=== PATIENT | female | born 1980 | race American Indian/Alaskan Native ===

== ENCOUNTER 2017-06-19 23:53 | Emergency (ER) | payer BC ==
[2017-06-20 00:23] VITALS: BP 155/81
[2017-06-20 00:57] LABS: CHLORIDE,CL 105 mmol/L (101-111); SODIUM,NA 139 mmol/L (135-145)
--- NOTE | 2017-06-20 01:14 | EDM.PDOC ---
ED HPI GENERAL MEDICAL PROBLEM - General Chief Complaint: Syncope Stated Complaint: SHAKY AND BODY IS TINGLING Time Seen by Provider: 06/20/17 00:05 Source of Information: Reports: Patient History Limitations: Reports: No Limitations - History of Present Illness INITIAL COMMENTS - FREE TEXT/NARRATIVE: c/o feeling lightheaded and shaky while getting ready for bed almost passed out attempted to sleep and felt worse. Admits lack of sleep today as upmost of night , traveled to [place] for ill father then to [place] today, Just back this capo. Ate last at 1330. Onset: Today, Sudden Duration: Improving Severity: Mild - Related Data Allergies Allergy/AdvReac Type Severity Reaction Status Date / Time No Known Allergies Allergy Verified 06/20/17 00:12 Home Meds: Home Meds . 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: Psychiatric History: Reports: Anxiety Social & Family History - Family History Family Medical History: Noncontributory - Tobacco Use Smoking Status *Q: Current Every Day Smoker Years of Tobacco use: 20 Packs/Tins Daily: 0.5 - Caffeine Use Caffeine Use: Reports: Coffee - Alcohol Use Days Per Week of Alcohol Use: 1 Number of Drinks Per Day: 6 Total Drinks Per Week: 6 - Recreational Drug Use Recreational Drug Use: Yes Drug Use in Last 12 Months: Yes Recreational Drug Type: Reports: Marijuana/Hashish ED ROS GENERAL - Review of Systems Review Of Systems: See Below Constitutional: Reports: Weakness HEENT: Reports: No Symptoms Respiratory: Reports: No Symptoms Cardiovascular: Reports: Lightheadedness GI/Abdominal: Reports: No Symptoms : Reports: Irregular Menses (heavy) Musculoskeletal: Reports: No Symptoms Skin: Reports: No Symptoms Neurological: Reports: Dizziness, Other (shaking) Psychiatric: Reports: Anxiety (similar episode few years ago ) Hematologic/Lymphatic: Reports: Anemia (in past) ED EXAM, DIZZINESS - Physical Exam Exam: See Below Exam Limited By: No Limitations General Appearance: Alert, Anxious, Mild Distress Eye Exam: Bilateral Eye: EOMI, PERRL Ears: Normal External Exam, Normal TMs Nose: Normal Inspection Throat/Mouth: Normal Oropharynx Head Exam: Atraumatic, Normocephalic Neck: Normal Inspection, Full Range of Motion Respiratory/Chest: No Respiratory Distress, Lungs Clear, Normal Breath Sounds Cardiovascular: Normal Peripheral Pulses, Regular Rate, Rhythm, Other ( orthostatic change when standing) GI/Abdominal: Normal Bowel Sounds, Soft, Non-Tender Neurological: Alert, Normal Mood/Affect, CN II-XII Intact, Normal Gait, Normal Reflexes, Oriented x 3 Back Exam: Normal Inspection Extremities: Normal Inspection Psychiatric: Normal Affect, Normal Mood, Anxious Skin Exam: Warm, Dry, Intact, Pallor EKG INTERPRETATION Rhythm: NSR Course - Vital Signs Last Recorded V/S: Last Vital Signs Temp 97.5 F 06/20/17 00:04 Pulse 88 06/20/17 00:22 Resp 15 06/20/17 00:22 BP 155/81 H 06/20/17 00:22 Pulse Ox 100 06/20/17 00:22 Orthostatic Blood Pressure [ 135/89 Standing] Orthostatic Blood Pressure [ 148/78 Sitting] Orthostatic Blood Pressure [ 160/82 Supine] - Orders/Labs/Meds Orders: Active Orders 24 hr Category Date Time Status EKG 12 Lead [EKG Documentation Completion] [RC] URGENT Care 06/20/17 00:19 Active Orthostatic Vital Signs [RC] ASDIRECTED Care 06/20/17 01:03 Active Labs: Laboratory Tests 06/20/17 06/20/17 06/20/17 Range/Units 00:30 00:30 00:30 WBC 10.6 H (5.0-10.0) 10^3/uL RBC 4.60 (4.2-5.4) 10^6/uL Hgb 8.7 L (12.0-16.0) g/dL Hct 30.3 L (37.0-47.0) % MCV 65.9 L (80-100) fL MCH 18.9 L (27.0-34.0) pg MCHC 28.7 L (33.0-35.0) g/dL Plt Count 343 (150-450) 10^3/uL Neut % (Auto) 64.9 (42.2-75.2) % Lymph % (Auto) 24.4 (20.5-50.1) % Ashley % (Auto) 6.6 (2-8) % Eos % (Auto) 3.3 H (1.0-3.0) % Baso % (Auto) 0.8 (0.0-1.0) % Sodium 139 (135-145) mmol/L Potassium 3.6 (3.6-5.0) mmol/L Chloride 105 (101-111) mmol/L Carbon Dioxide 24.0 (21.0-31.0) mmol/L Anion Gap 13.6 BUN 10 (7-18) mg/dL Creatinine 0.8 (0.6-1.3) mg/dL Est Cr Clr Drug Dosing 94.45 mL/min Estimated GFR (MDRD) > 60 BUN/Creatinine Ratio 12.50 Glucose 109 H (74-105) mg/dL Calcium 9.2 (8.4-10.2) mg/dl Total Bilirubin 0.5 (0.2-1.0) mg/dL AST 27 (10-42) IU/L ALT 19 (10-60) IU/L Alkaline Phosphatase 104 (42-121) IU/L Total Protein 7.5 (6.7-8.2) g/dl Albumin 4.0 (3.2-5.5) g/dl Globulin 3.5 Albumin/Globulin Ratio 1.14 Urine Color Straw (YELLOW) Urine Appearance Clear (CLEAR) Urine pH 7.0 (5.0-9.0) Ur Specific [place] 1.010 (1.005-1.030) Urine Protein Negative (NEGATIVE) Urine Glucose (UA) Negative (NEGATIVE) Urine Ketones Negative (NEGATIVE) Urine Occult Blood Negative (NEGATIVE) Urine Nitrite Negative (NEGATIVE) Urine Bilirubin Negative (NEGATIVE) Urine Urobilinogen 0.2 (0.2-1.0) mg/dL Ur Leukocyte Esterase Negative (NEGATIVE) Urine RBC 0-5 /HPF Urine WBC 0-5 (0-5/HPF) /HPF Ur Epithelial Cells Few /HPF Urine Bacteria Few (0-FEW/HPF) /HPF Departure - Departure Time of Disposition: 01:11 Disposition: Home, Self-Care 01 Condition: Fair Clinical Impression: Menometrorrhagia Anemia Qualifiers: Anemia type: iron deficiency Iron deficiency anemia type: unspecified iron deficiency Qualified Code(s): D50.9 - Iron deficiency anemia, unspecified - Discharge Information Instructions: Near-Syncope, [id number] Forms: ED Department Discharge Additional Instructions: Multivitamin with iron daily change positions slowly, follow up with primary care provider for recheck and to discuss options with heavy periods - My Orders Last 24 Hours: My Active Orders 06/20/17 00:19 EKG 12 Lead [EKG Documentation Completion] [RC] URGENT 06/20/17 01:03 Orthostatic Vital Signs [RC] ASDIRECTED - Assessment/Plan Last 24 Hours: My Active Orders 06/20/17 00:19 EKG 12 Lead [EKG Documentation Completion] [RC] URGENT 06/20/17 01:03 Orthostatic Vital Signs [RC] ASDIRECTED
--- NOTE | 2017-06-21 09:45 | EKG ---
06/20/2017- GUY SHOOK - EKG per my reading shows sinus rhythm at the rate of 78. [facility] /[id number]
== END 2017-06-20 01:25 | disposition home or self-care (01) ==
LOC: DL.ED 23:53
DX: N92.1 Excessive and frequent menstruation with irregular cycle (principal); D50.9 Iron deficiency anemia, unspecified; F17.210 Nicotine dependence, cigarettes, uncomplicated
CPT/HCPCS: 36415; 80053; 81001; 85025; 93005; 99284

== ENCOUNTER 2019-10-25 16:48 | Emergency (ER) | payer BC ==
[2019-10-25] MEDS ORDERED: Ondansetron 4 MG Tab.DIS PO ONE ×2 (16:49→17:14)
[2019-10-25 17:04] VITALS: BP 125/65; PULSE 94
[2019-10-25] MEDS ORDERED: Ondansetron 4 MG Tab.DIS ONE (17:39)
--- NOTE | 2019-10-25 20:47 | EDM.PDOC ---
Scribed by Betty Choudhury 10/25/19 1732 for Mallory Souza NP ED HPI GENERAL MEDICAL PROBLEM - General Chief Complaint: Gastrointestinal Problem Stated Complaint: THROWING UP Time Seen by Provider: 10/25/19 17:20 Source of Information: Reports: Patient, RN, RN Notes Reviewed History Limitations: Reports: No Limitations - History of Present Illness INITIAL COMMENTS - FREE TEXT/NARRATIVE: Patient presents to the ER today with 2 day nausea and vomited this A.M. x1. Her sister presents to the ER with the same symptoms. The family ate the same foods. This was of sudden onset yesterday. She has had chills and mild abdominal discomfort. Onset Date: 10/24/19 Duration: Getting Worse Location: Reports: Abdomen Quality: Reports: Ache Severity: Mild Improves with: Reports: None Worsens with: Reports: None Associated Symptoms: Reports: No Other Symptoms Bilateral Upper Abdomen Pain Score (Numeric/FACES): 5 - Related Data Allergies Allergy/AdvReac Type Severity Reaction Status Date / Time No Known Allergies Allergy Verified 10/25/19 17:04 Home Meds: Home Meds . 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 ED EXAM, GI/ABD - Physical Exam Exam: See Below Exam Limited By: No Limitations General Appearance: Alert, WD/WN, No Apparent Distress Eyes: Bilateral: Normal Appearance Ears: Normal External Exam, Normal Canal, Hearing Grossly Normal, Normal TMs Nose: Normal Inspection, Normal Mucosa, No Blood Throat/Mouth: Normal Inspection, Normal Lips, Normal Teeth, Normal Gums, Normal Oropharynx, Normal Voice, No Airway Compromise Head: Atraumatic, Normocephalic Neck: Normal Inspection, Supple, Non-Tender, Full Range of Motion Respiratory/Chest: No Respiratory Distress, Lungs Clear, Normal Breath Sounds, No Accessory Muscle Use, Chest Non-Tender Cardiovascular: Normal Peripheral Pulses, Regular Rate, Rhythm, No Edema, No Gallop, No JVD, No Murmur, No Rub GI/Abdominal Exam: Other (mild general abdominal pain with palpation. Negative McBurney or McMurphy. ). No: Guarding, Rebound (Female) Exam: Deferred Rectal (Female) Exam: Deferred Back Exam: Normal Inspection, Full Range of Motion, NT Extremities: Normal Inspection, Normal Range of Motion, Non-Tender, Normal Capillary Refill, No Pedal Edema Neurological: Alert, Oriented, CN II-XII Intact, Normal Cognition, Normal Gait, Normal Reflexes, No Motor/Sensory Deficits Psychiatric: Normal Affect, Normal Mood Skin Exam: Warm, Dry, Intact, Normal Color, No Rash Course - Vital Signs Last Recorded V/S: Last Vital Signs Temp 36.1 C 10/25/19 17:01 Pulse 94 10/25/19 17:01 Resp 18 10/25/19 17:01 BP 125/65 10/25/19 17:01 Pulse Ox 96 10/25/19 17:01 - Orders/Labs/Meds Meds: Medications Discontinued Medications Generic Name Dose Route Start Last Admin Trade Name Freq PRN Reason Stop Dose Admin Ondansetron HCl 4 mg 10/25/19 17:14 10/25/19 17:20 Zofran Odt PO 10/25/19 17:15 4 mg ONETIME ONE Administration Departure - Departure Time of Disposition: 17:31 Disposition: Home, Self-Care 01 Condition: Good Clinical Impression: Gastroenteritis - Discharge Information Instructions: Viral Gastroenteritis, Adult Forms: ED Department Discharge Additional Instructions: Zofran as needed for nausea q 6 hours. If unable to keep fluids down and vomiting with diarrhea or if abdominal pain worsens; then return to the ER Sepsis Event Note - Evaluation Sepsis Screening Result: No Definite Risk - Focused Exam Vital Signs: Vital Signs Temp Pulse Resp BP Pulse Ox 10/25/19 17:01 36.1 C 94 18 125/65 96 Date Exam was Performed: 10/25/19 Time Exam was Performed: 17:41 I have read and agree with the documentation that has been completed regarding this visit. By signing this record, I attest that the documentation was completed in my physical presence and is an accurate record of the encounter.
== END 2019-10-25 17:47 | disposition home or self-care (01) ==
LOC: DL.ED 16:48
DX: K52.9 Noninfective gastroenteritis and colitis, unspecified (principal); F17.210 Nicotine dependence, cigarettes, uncomplicated
CPT/HCPCS: 99283; A9270

== ENCOUNTER 2021-05-27 13:38 | Emergency (ER) | payer BC ==
[2021-05-27 14:24] VITALS: BP 117/74; PULSE 79
--- NOTE | 2021-05-27 15:15 | EDM.PDOC ---
ED HPI GENERAL MEDICAL PROBLEM - General Chief Complaint: General Stated Complaint: FACE NUMB / TROUBLE BREATHING Time Seen by Provider: 05/27/21 14:50 Source of Information: Reports: Patient History Limitations: Reports: No Limitations - History of Present Illness INITIAL COMMENTS - FREE TEXT/NARRATIVE: This 40 yo female patient reports to the ED due to numbness and tingling of her hands, neck, ears and face. The patient reports she was driving home when her symptoms started. The patient report she has had anxiety or panic attacks in the past, but has not ever noticed the tingling. The patient reports she is feeling better by the time of the examination. Onset: Today Duration: Resolved Prior to Arrival Location: Reports: Face, Neck, Upper Extremity, Left, Upper Extremity, Right Quality: Reports: Other Severity: Moderate Improves with: Reports: None Worsens with: Reports: None Context: Reports: Other Associated Symptoms: Reports: No Other Symptoms - Related Data Allergies Allergy/AdvReac Type Severity Reaction Status Date / Time No Known Allergies Allergy Verified 10/25/19 17:04 Home Meds: Home Meds . 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 ED EXAM, GENERAL - Physical Exam Exam: See Below Exam Limited By: No Limitations General Appearance: Alert, WD/WN, Mild Distress Eye Exam: Bilateral Eye: EOMI, Normal Inspection, PERRL Ears: Normal External Exam, Normal Canal, Hearing Grossly Normal, Normal TMs Nose: Normal Inspection, Normal Mucosa, No Blood Throat/Mouth: Normal Inspection, Normal Lips, Normal Teeth, Normal Gums, Normal Oropharynx, Normal Voice, No Airway Compromise Head: Atraumatic, Normocephalic Neck: Normal Inspection, Supple, Non-Tender, Full Range of Motion Respiratory/Chest: No Respiratory Distress, Lungs Clear, Normal Breath Sounds, No Accessory Muscle Use, Chest Non-Tender Cardiovascular: Normal Peripheral Pulses, Regular Rate, Rhythm, No Edema, No Gallop, No JVD, No Murmur, No Rub (Female) Exam: Deferred Rectal (Female) Exam: Deferred Back Exam: Normal Inspection, Full Range of Motion Extremities: Normal Inspection, Normal Range of Motion, Non-Tender, Normal Capillary Refill, No Pedal Edema Neurological: Alert, Oriented, CN II-XII Intact, Normal Cognition, Normal Gait, Normal Reflexes, No Motor/Sensory Deficits Psychiatric: Normal Affect, Normal Mood Skin Exam: Warm, Dry, Intact, Normal Color, No Rash Lymphatic: No Adenopathy Course - Vital Signs Last Recorded V/S: Last Vital Signs Temp 98.1 F 05/27/21 14:20 Pulse 79 05/27/21 14:20 Resp 16 05/27/21 14:20 BP 117/74 05/27/21 14:20 Pulse Ox 99 05/27/21 14:20 Departure - Departure Time of Disposition: 15:12 Disposition: Home, Self-Care 01 Condition: Fair Clinical Impression: Anxiety - Discharge Information *PRESCRIPTION DRUG MONITORING PROGRAM REVIEWED*: Not Applicable *COPY OF PRESCRIPTION DRUG MONITORING REPORT IN PATIENT LORENE: Not Applicable Instructions: Managing Anxiety, Adult Forms: ED Department Discharge Care Plan Goals: The patient was advised of the examination results during the visit. The patient was encouraged to practice relaxation techniques when she notices increased stress or anxiety. If the patient has any additional symptoms or concerns, the patient should either return to the emergency department or visit her primary care facility. Sepsis Event Note (ED) - Evaluation Sepsis Screening Result: No Definite Risk - Focused Exam Vital Signs: Vital Signs Temp Pulse Resp BP Pulse Ox 05/27/21 14:20 98.1 F 79 16 117/74 99
== END 2021-05-27 15:28 | disposition home or self-care (01) ==
LOC: DL.ED 13:38
DX: F41.9 Anxiety disorder, unspecified (principal); Z72.0 Tobacco use
CPT/HCPCS: 99282; 99283

== ENCOUNTER 2021-05-30 13:53 | Emergency (ER) | payer BC ==
[2021-05-30 14:16] VITALS: BP 128/80; PULSE 66
== END 2021-05-30 15:34 | disposition left against medical advice (07) ==
LOC: DL.ED 13:53
DX: Z53.21 Procedure and treatment not carried out due to patient leaving prior to being seen by health care provider (principal)

== ENCOUNTER 2024-06-13 18:58 | Emergency (ER) | payer BC ==
[2024-06-13 19:48] VITALS: BP 141/82; PULSE 82
== END 2024-06-13 21:03 | disposition home or self-care (01) ==
LOC: DL.ED 18:58
DX: J01.90 Acute sinusitis, unspecified (principal); F17.210 Nicotine dependence, cigarettes, uncomplicated; Z79.899 Other long term (current) drug therapy
CPT/HCPCS: 99283; 99284; U0002

== ENCOUNTER 2024-10-28 22:47 | Emergency (ER) | payer BC ==
[2024-10-29 00:09] VITALS: BP 136/60; PULSE 78
== END 2024-10-29 00:05 | disposition home or self-care (01) ==
LOC: DL.ED 22:47
DX: R07.89 Other chest pain (principal); E66.9 Obesity, unspecified; F17.210 Nicotine dependence, cigarettes, uncomplicated; Z86.16 Personal history of COVID-19; Z79.899 Other long term (current) drug therapy; Z68.27 Body mass index [BMI] 27.0-27.9, adult
CPT/HCPCS: 71046; 99284

== ENCOUNTER 2025-04-18 21:29 | Emergency (ER) | payer BC, OTHER ==
[2025-04-18 23:00] VITALS: BP 131/71; PULSE 57
[2025-04-18] MEDS ORDERED: Sodium Chloride 0.9% 10 ML Syringe FLUSH PRN (23:17)
[2025-04-18] MEDS: Ondansetron 4 MG/2 ML SDV IVPUSH ONE (23:25)
[2025-04-18] MEDS: Lactated Ringers 1,000 ML IV SCH (23:25)
[2025-04-18 23:32] LABS: BASOPHILS PERCENT AUTO 0.5 % (0.0-1.0); EOSINOPHILS PERCENT AUTO 0.1 % (1.0-3.0); HEMATOCRIT 37.6 % (37.0-47.0); HEMOGLOBIN 11.9 g/dL (12.0-16.0); LYMPHOCYTES PERCENT AUTO 6.1 % (20.5-50.1); MEAN CORPUSCULAR HEMOGLOBIN 25.4 pg (27.0-34.0); MEAN CORPUSCULAR HGB CONC 31.6 g/dL (33.0-35.0); MEAN CORPUSCULAR VOLUME 80.3 fL (80-100); MONOCYTES PERCENT AUTO 5.8 % (2-8); NEUTROPHILS PERCENT AUTO 87.5 % (42.2-75.2); PLATELET COUNT,PLT 364 10^3/uL (150-450); RED BLOOD CELL COUNT 4.68 10^6/uL (4.2-5.4); WHITE BLOOD CELL COUNT,WBC 10.3 10^3/uL (5.0-10.0)
[2025-04-18 23:57] LABS: ALBUMIN 3.1 g/dL (3.4-5.0); BUN/CREATININE RATIO 5.8 (No establ ref range); CALCIUM 10.7 mg/dL (8.5-10.1); CREATININE 1.2 mg/dL (0.55-1.02); EST CRCL DRUG DOSING (CG) 56.97 mL/min; MAGNESIUM 1.3 mg/dL (1.8-2.4); PROTEIN TOTAL,TP 7.6 g/dL (6.4-8.2)
[2025-04-18 23:59] LABS: A/G RATIO 0.69
[2025-04-19] MEDS: Magnesium Sulfate 2 GM/50 mL 2 GM in Premix Bag 1 BAG IV ONE (00:36)
[2025-04-19 00:37] LABS: APPEARANCE,URINE CLOUDY (CLEAR); BILIRUBIN,URINE NEGATIVE (NEGATIVE); COLOR,URINE YELLOW (YELLOW); GLUCOSE,URINE NEGATIVE (NEGATIVE); KETONES,URINE 15 (NEGATIVE); LEUKOCYTE ESTERASE,URINE TRACE (NEGATIVE); NITRITE,URINE POSITIVE (NEGATIVE); OCCULT BLOOD,URINE NEGATIVE (NEGATIVE); PROTEIN,URINE 100 (NEGATIVE)
[2025-04-19 00:41] LABS: AMPHETAMINES,URINE NEGATIVE (NEGATIVE); BARBITURATES,URINE NEGATIVE (NEGATIVE); BENZODIAZEPINE,URINE NEGATIVE (NEGATIVE); MDMA (ECSTASY), URINE NEGATIVE (NEGATIVE); METHADONE,URINE NEGATIVE (NEGATIVE); METHAMPHETAMINES,URINE NEGATIVE (NEGATIVE); OPIATES,URINE NEGATIVE (NEGATIVE); OXYCODONE,URINE NEGATIVE (NEGATIVE); PHENCYCLIDINE,URINE NEGATIVE (NEGATIVE); TCA,URINE NEGATIVE (NEGATIVE)
[2025-04-19 00:47] LABS: EPITHELIAL CELLS,URINE FEW /HPF (NOT SEEN); RBC,URINE 0-5 /HPF (0-5); WBC,URINE 30-40 /HPF (0-5/HPF)
[2025-04-19 00:48] LABS: AMORPHOUS SEDIMENT,URINE FEW /HPF (NOT SEEN); BACTERIA,URINE MANY /HPF (0-FEW/HPF); MUCUS,URINE FEW /LPF (NOT SEEN)
[2025-04-19] MEDS: Take Home: Ciprofloxacin HCl 500 MG, 6 Tab Pack PO ONE (00:49)
[2025-04-19] MEDS: Take Home: Ondansetron 4 MG Tab.DIS, 5 Tab Pack PO ONE (00:49)
== END 2025-04-19 01:32 | disposition home or self-care (01) ==
LOC: DL.ED 21:29
DX: N30.00 Acute cystitis without hematuria (principal); F10.20 Alcohol dependence, uncomplicated; E83.42 Hypomagnesemia; F17.210 Nicotine dependence, cigarettes, uncomplicated; E66.9 Obesity, unspecified; Z68.23 Body mass index [BMI] 23.0-23.9, adult; Z86.16 Personal history of COVID-19
CPT/HCPCS: 36415; 80053; 80305; 80307; 81001; 81025; 83690; 83735; 85025; 87086; 87088; 87186; 96361; 96365; 96375; 99284; A9270; J2405; J3475; J7120; Q0162

== ENCOUNTER 2025-05-26 07:47 | Emergency (ER) | payer SELFPAY ==
[2025-05-26] MEDS ORDERED: Sodium Chloride 0.9% 10 ML Syringe FLUSH PRN (08:05)
[2025-05-26 08:16] LABS: BASOPHILS PERCENT AUTO 0.3 % (0.0-1.0); EOSINOPHILS PERCENT AUTO 1.8 % (1.0-3.0); LYMPHOCYTES PERCENT AUTO 19.7 % (20.5-50.1); MONOCYTES PERCENT AUTO 6.1 % (2-8); NEUTROPHILS PERCENT AUTO 72.1 % (42.2-75.2); PLATELET COUNT,PLT 349 10^3/uL (150-450); RED BLOOD CELL COUNT 4.82 10^6/uL (4.2-5.4); WHITE BLOOD CELL COUNT,WBC 9.9 10^3/uL (5.0-10.0)
[2025-05-26] MEDS: Ondansetron 4 MG/2 ML SDV IVPUSH ONE (08:20)
[2025-05-26] MEDS: fentaNYL 100 MCG/2 ML SDV IVPUSH ONE (08:20)
[2025-05-26] MEDS: Lactated Ringers 1,000 ML IV SCH (08:21)
[2025-05-26 08:32] LABS: HCG QUALITATIVE,SERUM NEGATIVE (NEGATIVE)
[2025-05-26 08:37] LABS: A/G RATIO 0.66; ALANINE AMINOTRANSFERASE,ALT 67 U/L (14-59); ASPARTATE AMNIOTRANSFERASE,AST 121 U/L (15-37); BILIRUBIN TOTAL 0.8 mg/dL (0.2-1.0); BLOOD UREA NITROGEN,BUN 2 mg/dL (7-18); CARBON DIOXIDE,CO2 25 mmol/L (21-32); CHLORIDE,CL 102 mmol/L (98-107); CREATININE 1.18 mg/dL (0.55-1.02); EST CRCL DRUG DOSING (CG) 57.93 mL/min; ESTIMATED GFR 58 mL/min (>=60); GLUCOSE RANDOM 117 mg/dL (70-99); POTASSIUM,K 4.3 mmol/L (3.5-5.1); PROTEIN TOTAL,TP 7.3 g/dL (6.4-8.2); SODIUM,NA 137 mmol/L (136-145)
[2025-05-26] MEDS ORDERED: Iopamidol 612 MG/ML 100 ML Bottle IVPUSH ONE (08:44)
[2025-05-26] MEDS: Magnesium Sulf/Wat 4 GM/50 mL 4 GM in Premix Bag 1 BAG IV ONE (09:06)
[2025-05-26 09:24] LABS: APPEARANCE,URINE SLIGHTLY CLOUDY (CLEAR); GLUCOSE,URINE NEGATIVE (NEGATIVE); OCCULT BLOOD,URINE TRACE-INTACT (NEGATIVE)
[2025-05-26 09:35] LABS: AMPHETAMINES,URINE NEGATIVE (NEGATIVE); BARBITURATES,URINE NEGATIVE (NEGATIVE); MDMA (ECSTASY), URINE NEGATIVE (NEGATIVE); METHAMPHETAMINES,URINE NEGATIVE (NEGATIVE); OPIATES,URINE NEGATIVE (NEGATIVE); OXYCODONE,URINE NEGATIVE (NEGATIVE); PHENCYCLIDINE,URINE NEGATIVE (NEGATIVE); TCA,URINE NEGATIVE (NEGATIVE)
[2025-05-26 09:41] LABS: EPITHELIAL CELLS,URINE FEW /HPF (NOT SEEN)
[2025-05-26 12:58] VITALS: BP 128/110; PULSE 74
== END 2025-05-26 12:46 | disposition home or self-care (01) ==
LOC: DL.ED 07:47
DX: N39.0 Urinary tract infection, site not specified (principal); E83.42 Hypomagnesemia; Z86.16 Personal history of COVID-19
CPT/HCPCS: 36415; 74177; 80053; 80305-QW; 81001; 83690; 83735; 84703; 85025; 86140; 87086; 87088; 87186; 96361; 96365; 96366; 96375; 99284-25; J0696; J2405; J3010; J3475; J7120

== ENCOUNTER 2025-06-02 11:45 | Emergency (ER) | payer SELFPAY ==
[2025-06-02] MEDS ORDERED: Sodium Chloride 0.9% 10 ML Syringe FLUSH PRN (12:04)
[2025-06-02 12:27] LABS: PLATELET COUNT,PLT 414 10^3/uL (150-450); RED BLOOD CELL COUNT 4.50 10^6/uL (4.2-5.4); WHITE BLOOD CELL COUNT,WBC 8.2 10^3/uL (5.0-10.0)
[2025-06-02 12:31] LABS: BASOPHILS PERCENT AUTO 0.9 % (0.0-1.0); EOSINOPHILS PERCENT AUTO 3.0 % (1.0-3.0); LYMPHOCYTES PERCENT AUTO 24.5 % (20.5-50.1); MONOCYTES PERCENT AUTO 9.5 % (2-8); NEUTROPHILS PERCENT AUTO 62.1 % (42.2-75.2)
[2025-06-02 12:46] LABS: INR 0.9 (0.9-1.2); PTT,PARTIAL THROMBOPLSTIN TIME 20.5 SEC (22.0-34.0)
[2025-06-02 12:53] LABS: ALANINE AMINOTRANSFERASE,ALT 62.0 U/L (14-59); ASPARTATE AMNIOTRANSFERASE,AST 121.0 U/L (15-37); BILIRUBIN TOTAL 0.3 mg/dL (0.2-1.0); CARBON DIOXIDE,CO2 23.0 mmol/L (21-32); CHLORIDE,CL 107.0 mmol/L (98-107); CREATININE 0.93 mg/dL (0.55-1.02); EST CRCL DRUG DOSING (CG) 73.5 mL/min; ETHANOL BLOOD MEDICAL 60.0 mg/dL (0); GLUCOSE RANDOM 93.0 mg/dL (70-99); POTASSIUM,K 3.8 mmol/L (3.5-5.1); PROTEIN TOTAL,TP 7.1 g/dL (6.4-8.2); SODIUM,NA 143.0 mmol/L (136-145)
[2025-06-02 12:57] LABS: A/G RATIO 0.65; ESTIMATED GFR 77.0 mL/min (>=60)
[2025-06-02 12:58] LABS: LACTIC ACID 4.7 mmol/L (0.4-2.0)
[2025-06-02 13:02] LABS: BLOOD UREA NITROGEN,BUN 1.0 mg/dL (7-18)
[2025-06-02 13:05] LABS: EOSINOPHILS PERCENT MAN 3 % (1-3); LYMPHOCYTES PERCENT MAN 20 % (20-50); MONOCYTES PERCENT MAN 5 % (2-8); SEG NEUTROPHILS PERCENT MAN 72 % (42-75)
[2025-06-02] MEDS: Magnesium Sulfate 2 GM/50 mL 2 GM in Premix Bag 1 BAG IV ONE (13:13)
[2025-06-02] MEDS: Iopamidol 612 MG/ML 100 ML Bottle IVPUSH ONE (13:58)
[2025-06-02] MEDS: GI Cocktail Oral Solution 30 ML PO ONE (15:05)
[2025-06-02 16:19] VITALS: BP 134/77; PULSE 74
== END 2025-06-02 16:09 | disposition home or self-care (01) ==
LOC: DL.ED 11:45
DX: K29.20 Alcoholic gastritis without bleeding (principal); F10.10 Alcohol abuse, uncomplicated; K76.0 Fatty (change of) liver, not elsewhere classified; E66.9 Obesity, unspecified; Z68.22 Body mass index [BMI] 22.0-22.9, adult; Y90.3 Blood alcohol level of 60-79 mg/100 ml
CPT/HCPCS: 36415; 71045; 74177; 80053; 80307; 83605; 83690; 83735; 84484; 84703; 85025; 85610; 85730; 93005; 96365; 96375; 99284; A9270; J1171; J1630; J2470; J3475; J7030; Q9967

== ENCOUNTER 2025-06-26 15:07 | Emergency (ER) | payer SELFPAY ==
[2025-06-26] MEDS ORDERED: Sodium Chloride 0.9% 10 ML Syringe FLUSH PRN (16:23)
[2025-06-26 16:45] LABS: BASOPHILS PERCENT AUTO 0.5 % (0.0-1.0); EOSINOPHILS PERCENT AUTO 0.0 % (1.0-3.0); LYMPHOCYTES PERCENT AUTO 8.2 % (20.5-50.1); MONOCYTES PERCENT AUTO 9.4 % (2-8); NEUTROPHILS PERCENT AUTO 81.9 % (42.2-75.2); PLATELET COUNT,PLT 295 10^3/uL (150-450); RED BLOOD CELL COUNT 4.66 10^6/uL (4.2-5.4); WHITE BLOOD CELL COUNT,WBC 10.3 10^3/uL (5.0-10.0)
[2025-06-26 16:48] LABS: APPEARANCE,URINE CLOUDY (CLEAR); GLUCOSE,URINE NEGATIVE (NEGATIVE); OCCULT BLOOD,URINE TRACE-INTACT (NEGATIVE)
[2025-06-26 16:53] LABS: AMPHETAMINES,URINE NEGATIVE (NEGATIVE); BARBITURATES,URINE NEGATIVE (NEGATIVE); MDMA (ECSTASY), URINE NEGATIVE (NEGATIVE); METHAMPHETAMINES,URINE NEGATIVE (NEGATIVE); OPIATES,URINE NEGATIVE (NEGATIVE); OXYCODONE,URINE NEGATIVE (NEGATIVE); PHENCYCLIDINE,URINE NEGATIVE (NEGATIVE); TCA,URINE NEGATIVE (NEGATIVE)
[2025-06-26 17:00] LABS: EPITHELIAL CELLS,URINE FEW /HPF (NOT SEEN)
[2025-06-26 17:04] LABS: INR 1.2 (0.9-1.2); PTT,PARTIAL THROMBOPLSTIN TIME 21.7 SEC (22.0-34.0)
[2025-06-26 17:06] LABS: ALANINE AMINOTRANSFERASE,ALT 51 U/L (14-59); ASPARTATE AMNIOTRANSFERASE,AST 102 U/L (15-37); BILIRUBIN TOTAL 1.6 mg/dL (0.2-1.0); BLOOD UREA NITROGEN,BUN 6 mg/dL (7-18); CARBON DIOXIDE,CO2 26 mmol/L (21-32); CHLORIDE,CL 105 mmol/L (98-107); CREATININE 1.18 mg/dL (0.55-1.02); EST CRCL DRUG DOSING (CG) 57.93 mL/min; GLUCOSE RANDOM 128 mg/dL (70-99); POTASSIUM,K 4.1 mmol/L (3.5-5.1); PROTEIN TOTAL,TP 7.6 g/dL (6.4-8.2); SODIUM,NA 144 mmol/L (136-145)
[2025-06-26 17:07] LABS: A/G RATIO 0.77; ESTIMATED GFR 58 mL/min (>=60); ETHANOL BLOOD MEDICAL < 3 mg/dL (0)
[2025-06-26 17:12] LABS: LACTIC ACID 4.7 mmol/L (0.4-2.0)
[2025-06-26] MEDS: Magnesium Sulfate 2 GM/50 mL 2 GM in Premix Bag 1 BAG IV ONE ×2 (17:26→18:59)
[2025-06-26] MEDS: Iopamidol 612 MG/ML 100 ML Bottle IVPUSH ONE (17:51)
[2025-06-26] MEDS: Levofloxacin/Dextrose 5%-Water 750 MG in Premix Bag 1 BAG IV ONE (19:16)
[2025-06-26 22:01] VITALS: BP 138/69; PULSE 75
== END 2025-06-26 21:53 | disposition home or self-care (01) ==
LOC: DL.ED 15:07
DX: N39.0 Urinary tract infection, site not specified (principal); E83.42 Hypomagnesemia; E66.9 Obesity, unspecified; Z68.22 Body mass index [BMI] 22.0-22.9, adult; F17.210 Nicotine dependence, cigarettes, uncomplicated
CPT/HCPCS: 36415; 74177; 80053; 80305; 80307; 81001; 81025; 83605; 83690; 83735; 84145; 85025; 85610; 85730; 87040; 87086; 87088; 87186; 96365; 96367; 96376; 99284; J1956; J3475; J7030; Q9967